=== PATIENT | female | born 2000 | race Caucasian/White ===

== ENCOUNTER 2025-06-03 06:38 | Emergency (ER) | payer OTHER, SELFPAY ==
[2025-06-03 06:41] VITALS: BP 130/86
--- NOTE | 2025-06-03 07:18 | ED.SKININJ ---
HPI-Injury
<GUDELIA García Last Filed: 06/03/25 10:22>
General
Chief Complaint: Skin Problem
Source: patient
Exam Limitations: none
Time Seen by Provider: 06/03/25 07:09
History of Present Illness-Injury
Initial Injury comments:
24-year-old otherwise healthy female presents complaining of increased pain swelling and redness to the left forearm. Her cat bit her 3 days ago. 2 days ago she started on Augmentin. She has been on Augmentin for 48 hours and has had 4 doses.
She notes nausea and chills as well. She notes the swelling in the area of discomfort is spreading up her forearm. Cats vaccines are up-to-date. No other at this time
Past History
<GUDELIA García Last Filed: 06/03/25 10:22>
Past History
ED Past Medical History: Psychiatric (Anxiety/depression)
ED Past Surgical History: Other (Oral surgery)
Social History
Tobacco: Non-smoker
Alcohol: None
Drug: None
Personal: Single
Living: with family
Employment: Student
Family History
Family History: Other (Noncontributory)
Phy Exam
<GUDELIA García Last Filed: 06/03/25 10:22>
Physical Exam
Physical Exam:
General: Well-appearing female no acute respiratory distress
HEENT: Normocephalic atraumatic
Heart: Regular rate and rhythm
Lungs: Clear no wheeze
Skin: Multiple puncture wounds dorsal aspect left forearm with surrounding erythema. There is swelling noted here as well. This is tender without fluctuance. There is no lymphangitic streaking. She has good range of motion to the elbow and the
wrist
Vascular: 2+ radial pulse left wrist
Sepsis
<GUDELIA García Filed: 06/03/25 10:22>
Sepsis Screening
Sepsis Assessment: Sepsis Ruled Out
Sepsis Screen
Sepsis Screen: Sepsis Ruled Out
Date: 06/03/25
Time: 10:22
Course
<Moises GUDELIA Farooq - Last Filed: 06/03/25 10:22>
Orders/Labs/Results
Orders:
Orders
06/03/25 07:17
Ketorolac [Toradol] 15 mg IV NOW STA
06/03/25 07:18
Ondansetron Injectable [Zofran] 4 mg IV NOW STA
06/03/25 07:35
Ampicillin/Sulbactam 3 G [Unasyn] 3 gm 0.9% Sodium Chloride 100 ml [Nss] 100 ml IV NOW
06/03/25 07:42
Complete Blood Count/With Diff Urgent
Comprehensive Metabolic Panel Urgent
Blood Culture Q30M
MICHI Source: Blood/Venous
Specimen Description:
Blood Culture Q30M
MICHI Source: Blood/Venous
Specimen Description:
06/03/25 08:00
Flush (0.9% Sodium Chloride) [Flush (Nss)] See Dose Instructions IV PER PROTOCOL
06/03/25 08:41
CR Forearm - Left 2 View Urgent
Comment:
Reason For Exam: cat bite
06/03/25 08:59
0.9% Sodium Chloride 1000 ml [Nss] 1,000 ml IV BOLUS
Abnormal Lab Results
06/03/25
07:42
RBC 4.18 L 10^6/uL
(4.20-5.40)
MCH 31.8 H pg
(27.0-31.0)
06/03/25 07:42
06/03/25 07:42
Vital Signs
Initial and Last Documented VS:
Initial Vital Signs
Temp Pulse Resp BP Pulse Ox
98.1 F 93 16 130/86 96
06/03/25 06:41 06/03/25 06:41 06/03/25 06:41 06/03/25 06:41 06/03/25 06:41
Last Documented Vital Signs
Temp Pulse Resp BP Pulse Ox
98.1 F 93 16 130/86 96
06/03/25 06:41 06/03/25 06:41 06/03/25 06:41 06/03/25 06:41 06/03/25 07:20
<Daniel Zhang, - Last Filed: 06/03/25 09:52>
Orders/Labs/Results
Orders:
Orders
06/03/25 07:17
Ketorolac [Toradol] 15 mg IV NOW STA
06/03/25 07:18
Ondansetron Injectable [Zofran] 4 mg IV NOW STA
06/03/25 07:35
Ampicillin/Sulbactam 3 G [Unasyn] 3 gm 0.9% Sodium Chloride 100 ml [Nss] 100 ml IV NOW
06/03/25 07:42
Complete Blood Count/With Diff Urgent
Comprehensive Metabolic Panel Urgent
Blood Culture Q30M
MICHI Source: Blood/Venous
Specimen Description:
Blood Culture Q30M
MICHI Source: Blood/Venous
Specimen Description:
06/03/25 08:00
Flush (0.9% Sodium Chloride) [Flush (Nss)] See Dose Instructions IV PER PROTOCOL
06/03/25 08:41
CR Forearm - Left 2 View Urgent
Comment:
Reason For Exam: cat bite
06/03/25 08:59
0.9% Sodium Chloride 1000 ml [Nss] 1,000 ml IV BOLUS
Abnormal Lab Results
06/03/25
07:42
RBC 4.18 L 10^6/uL
(4.20-5.40)
MCH 31.8 H pg
(27.0-31.0)
06/03/25 07:42
06/03/25 07:42
Vital Signs
Initial and Last Documented VS:
Initial Vital Signs
Temp Pulse Resp BP Pulse Ox
98.1 F 93 16 130/86 96
06/03/25 06:41 06/03/25 06:41 06/03/25 06:41 06/03/25 06:41 06/03/25 06:41
Last Documented Vital Signs
Temp Pulse Resp BP Pulse Ox
98.1 F 93 16 130/86 96
06/03/25 06:41 06/03/25 06:41 06/03/25 06:41 06/03/25 06:41 06/03/25 07:20
<Moises Farooq PA-C - Last Filed: 06/03/25 10:22>
MDM/Problems Addressed
Differential Diagnosis Includes:
Cat bite with surrounding erythema. Consider cellulitis. No clinical sign of abscess. Concern as she has been on antibiotics for 48 hours without improvement infections getting worse. Will check labs including blood cultures. Toradol Zofran and
use Unasyn ordered.
<Moises Farooq PA-C - Last Filed: 06/03/25 10:22>
*Pulse Oximetry
SaO2: 96
Oxygen Mode of Delivery: Room air
Patient hypoxic: no
*Critical Care Note
Total Time (30-74mins, 75-104mins- exclusive of procedures): Not Applicable
<Moises Farooq PA-C - Last Filed: 06/03/25 10:22>
Update Note
Update Note:
Labs reviewed normal white count afebrile here patient feeling much better after interventions performed here including Toradol Unasyn and fluids. X-ray negative for foreign body. Shared decision making occurred as far as treatment. Given
improvement of symptoms we will continue Augmentin at home. Will prescribe a couple days of Toradol for her for her pain. Return precautions were given. Did discuss potentially changing the regimen to a dual antibiotic therapy however double the
Augmentin. No lymphangitis at this time.
ED Attending Note
<Moises Farooq PA-C - Last Filed: 06/03/25 10:22>
-
Portions of this chart may have been created with voice recognition software.� Occasional wrong word or��sound alike� substitutions may have occurred due to the inherent limitations of voice recognition software.
<Daniel Zhang DO - Last Filed: 06/03/25 09:52>
ED Attending Note
Patient seen and examined by attending physician: Yes
I performed the substantive portion of visit, reviewed & personally made and approve the management plan that is documented in note by myself or GUILLERMO.: Yes
ED Attending Note:
Cat bite to left forearm and left upper arm. Exam: Normal distal cap refill does a puncture wound to the proximal medial left upper arm as well as the dorsal left forearm. There is minimal surrounding left forearm redness. No drainage. She has a
bruising to the right arm from a different injury. Assessment plan: Continue antibiotics and apply warm compresses. Given IV antibiotics. Patient counseled on reasons for return
Discharge Plan
Departure
Patient Disposition: Home (Routine Discharge)
Date of Disposition: 06/03/25
Time of Disposition: 10:20
Patient with high blood pressure during this ER visit?: No
Discharge Problem:
Cellulitis
Instructions: Cellulitis (Skin Infection), Adult (DC)
Prescriptions:
New
ketorolac 10 mg tablet
10 mg PO QID PRN (Reason: Pain) Qty: 15 0RF
Rx Instructions:
maximum total duration of 5 days from all oral, intranasal, or parenteral formulations
No Action
epinephrine [EpiPen] 0.3 MG/0.3/SYRINGE auto-injector
0.3 mg IM PRN PRN (Reason: severe alelrgy) Qty: 1 2RF
lamotrigine [Lamictal] 150 mg Tablet
150 mg PO DAILY
hydroxyzine HCl 25 mg Tablet
25 mg PO QID PRN (Reason: ANXIETY)
prednisolone sodium phosphate [prednisolone sodium phosphate] 15 mg/5 mL (3 mg/mL) solution
10 ml PO DAILY 3 Days Qty: 30 0RF
Rx Instructions:
Take Prelone starting tomorrow, once daily x 3 days
ondansetron [ondansetron] 4 mg tablet,disintegrating
4 mg PO Q8H PRN (Reason: Nausea and Vomiting) 10 Days Qty: 15 0RF
hydrocodone-acetaminophen [hydrocodone-acetaminophen] 7.5-325 mg/15 mL solution
15 ml PO Q4HPRN PRN (Reason: Pain) Qty: 475 0RF
ciprofloxacin HCl 500 mg Tablet
500 mg PO BID Qty: 14 0RF
phenazopyridine [Pyridium] 200 mg tablet
200 mg PO TID PRN (Reason: Pain) Qty: 14 0RF
ketorolac 10 mg tablet
10 mg PO QID PRN (Reason: pain) Qty: 20 0RF
amoxicillin-pot clavulanate 875-125 mg tablet
1 tab PO BID Qty: 14 0RF
Referrals:
Lise Hodges MD [Family Provider, Family Practice]
Activity Restrictions/Additional Instructions:
Continue with Augmentin. Use warm compresses several times a day. May use prescribed medicine as needed for pain. Return here for increasing swelling redness fever vomiting or other concerning findings
Interventions
Interventions:
*Risk Screen - Suicide Last Done: 06/03/25 06:41
ED-Skin Assessment Last Done: 06/03/25 07:58
Discharge Date and Time
Print Language: SPANISH
[2025-06-03] MEDS: TORADOL 15 MG IV (07:44)
[2025-06-03] MEDS: ZOFRAN 4 MG IV (07:45)
[2025-06-03] MEDS: UNASYN IV (07:52)
[2025-06-03 07:59] LABS: Hematocrit 38.0 % (37.0-47.0); Hemoglobin 13.3 g/dL (12.0-16.0); Mean Corp Hgb Conc. 35.0 g/dL (33.0-37.0); Mean Corpuscular Volume 90.9 fL (81.0-99.0); Nucleated Red Blood Cells % 0 %; Platelet Count 218 10^3/uL (130-400); Red Cell Dist. Width 11.9 % (11.5-14.5)
[2025-06-03 08:19] LABS: ALT (SGPT) 34 U/L (0-35); AST (SGOT) 25 U/L (14-36); Albumin 4.4 g/dl (3.5-5.0); Alkaline Phosphatase 55 U/L (38-126); Blood Urea Nitrogen 12 mg/dl (7-17); Calcium 9.2 mg/dl (8.4-10.2); Carbon Dioxide 24 mmol/L (22-30); Chloride 107 mmol/L (98-107); Glucose 94 mg/dl (70-99); Potassium 4.9 mmol/L (3.5-5.1); Sodium 139 mmol/L (135-145); Total Protein 7.3 g/dl (6.3-8.2); eGFR > 60.00
[2025-06-03] MEDS: NSS 1000 IV (09:28)
== END 2025-06-03 10:28 | disposition home or self-care (01) ==
LOC: EMR 06:38
PROVIDERS: Physician Assistant; EMERGENCY PHYSICIAN Emergency Medicine; FAMILY PHYSICIAN Family Medicine
DX: L03.114 Cellulitis of left upper limb (principal); S51.832A Puncture wound without foreign body of left forearm, initial encounter; S41.132A Puncture wound without foreign body of left upper arm, initial encounter; W55.01XA Bitten by cat, initial encounter; R11.0 Nausea; R68.83 Chills (without fever); S40.021A Contusion of right upper arm, initial encounter; X58.XXXA Exposure to other specified factors, initial encounter; F41.9 Anxiety disorder, unspecified; F32.A Depression, unspecified; Z91.013 Allergy to seafood; Z88.8 Allergy status to other drugs, medicaments and biological substances; Z91.018 Allergy to other foods
CPT/HCPCS: 99284; 96365; 96375 ×2; 96361; 73090; 80053; 85025; 87040

== ENCOUNTER 2025-08-25 00:31 | Emergency (ER) | payer OTHER, SELFPAY ==
[2025-08-25 00:42] VITALS: BP 170/106
[2025-08-25] MEDS: IMITREX 6 MG SC (00:57)
[2025-08-25] MEDS: REGLAN 10 MG IV (02:08)
[2025-08-25] MEDS: BENADRYL 12.5 MG IV (02:08)
[2025-08-25] MEDS: TORADOL 15 MG IV (02:09)
[2025-08-25] MEDS: NSS 500 IV (02:10)
[2025-08-25 02:19] LABS: Hematocrit 41.2 % (37.0-47.0); Hemoglobin 14.9 g/dL (12.0-16.0); Mean Corp Hgb Conc. 36.2 g/dL (33.0-37.0); Mean Corpuscular Volume 87.3 fL (81.0-99.0); Platelet Count 270 10^3/uL (130-400); Red Cell Dist. Width 11.5 % (11.5-14.5)
[2025-08-25 02:35] LABS: HCG, Serum Qualitative Screen Negative
[2025-08-25 02:37] LABS: Blood Urea Nitrogen 13 mg/dl (7-17); Calcium 10.5 mg/dl (8.4-10.2); Carbon Dioxide 25 mmol/L (22-30); Chloride 105 mmol/L (98-107); Glucose 98 mg/dl (70-99); Magnesium 2.1 mg/dl (1.6-2.3); Potassium 4.5 mmol/L (3.5-5.1); Sodium 141 mmol/L (135-145); eGFR > 60.00
[2025-08-25 03:08] LABS: TSH 2.26 uIU/ml (0.47-4.68)
[2025-08-25 03:32] VITALS: BP 95/55
[2025-08-25] MEDS: TYLENOL 1000 MG PO (04:03)
[2025-08-25 05:00] VITALS: BP 140/82
--- NOTE | 2025-08-25 05:21 | ED.GENMED ---
History of Present Illness
General
Chief Complaint: Numbness
Source: patient
Exam Limitations: none
Time Seen by Provider: 08/25/25 00:54
Nursing documentation reviewed up to this point in time: agreed with
History of Present Illness
History of Present Illness:
Patient with history of migraine headache, presents ED secondary to worsening headache along with right facial and right arm/leg numbness sensation. Denies blurred vision. Denies dizziness. Denies weakness. Denies difficulty speech. Denies
trauma. Denies recent illness. Denies recent change in medications or diet. Patient has had headache in the past, but never associated with numbness sensation.
Past History
Past History
ED Past Medical History: Psychiatric (Anxiety/depression)
ED Past Surgical History: Other (Oral surgery)
Social History
Tobacco: Non-smoker
Alcohol: None
Drug: None
Personal: Single
Living: with family
Employment: Student
Family History
Family History: Other (Noncontributory)
Review of Systems
Review of Systems
Allergies reviewed?: Yes
All Other Systems: ROS reviewed and negative except as documented in HPI and ROS
Constitutional: Reports no symptoms
Respiratory: Reports no symptoms
Cardiac: Reports no symptoms
ABD/GI: Reports no symptoms
Musculoskeletal: Reports no symptoms
Skin: Reports no symptoms
Neurological: Reports headache and numbness; Denies dizzy or weakness
Phy Exam
Physical Exam
Physical Exam:
Physical Exam
General: mild painful distress, not acutely ill. afebrile
Head: nc/at. eomi
Neck: supple. no meningeal signs. normal range of motion
Heart: s1/s2 regular rate and rhythm
Lungs: no acute respiratory distress. clear bilaterally
Abdomen: normal bowel sounds. not tender.
Neuro: alert and oriented x 3. no motor weakness. diminished sensation noted over right face/RUE/RLE. normal speech
Skin: no rash
Psychiatric: well kept. interactive and cooperative
Extremities: no edema. no calf tenderness.
Course
Orders/Labs/Results
Orders:
Orders
08/25/25 00:54
Sumatriptan Succinate [Imitrex] 6 mg SC NOW STA
08/25/25 01:38
0.9% Sodium Chloride 500 ml [Nss] 500 ml IV BOLUS
Diphenhydramine [Benadryl] 12.5 mg IV NOW STA
Ketorolac [Toradol] 15 mg IV NOW STA
Metoclopramide [Reglan] 10 mg IV NOW STA
08/25/25 01:57
Test Result ONCE
08/25/25 02:06
Basic Metabolic Panel Urgent
Complete Blood Count/No Diff Urgent
HCG, Serum Qualitative Screen Urgent
Lyme Progressive Urgent
Comment: ADD ON
Magnesium Urgent
TSH Urgent
08/25/25 03:58
CT Head & Neck Angio W/wo IV Urgent
Comment:
Reason For Exam: headache w right UE/LE numbness
08/25/25 04:01
Acetaminophen [Tylenol] 1,000 mg .ROUTE .STK-MED ONE
Acetaminophen [Tylenol] 1,000 mg PO NOW STA
08/25/25 04:02
Add On- LAB Urgent
Tests Added?: Lyme progressive
Abnormal Lab Results
08/25/25
02:06
MCH 31.6 H pg
(27.0-31.0)
Calcium 10.5 H mg/dl
(8.4-10.2)
08/25/25 02:06
08/25/25 02:06
Vital Signs
Initial and Last Documented VS:
Initial Vital Signs
Temp Pulse Resp BP Pulse Ox
98.6 F 117 24 170/106 99
08/25/25 00:42 08/25/25 00:42 08/25/25 00:42 08/25/25 00:42 08/25/25 00:42
Last Documented Vital Signs
Temp Pulse Resp BP Pulse Ox
98.6 F 92 14 140/82 98
08/25/25 00:42 08/25/25 06:34 08/25/25 06:34 08/25/25 06:34 08/25/25 06:34
MDM/Problems Addressed
MDM/Problems Addressed:
Patient given treatment in the ED, with improvement headache, along with improved sensation of right upper and lower extremity. However upon reexamination, patient still reporting diminished sensation. As such, decision made to check blood work
and order CT head/neck angiogram.
CT report reviewed and discussed with patient. Patient reports continual improvement in symptoms during observation. As such, after discussion, decision made to discharge patient home with symptomatic treatment, along with outpatient consultation
with neurology. Return precautions provided, i.e. fever/worsening headache/vomiting/numbness or weakness.
*Pulse Oximetry
SaO2: 99
Oxygen Mode of Delivery: Room air
Patient hypoxic: no
*Critical Care Note
Total Time (30-74mins, 75-104mins- exclusive of procedures): Not Applicable
ED Attending Note
-
Portions of this chart may have been created with voice recognition software.� Occasional wrong word or��sound alike� substitutions may have occurred due to the inherent limitations of voice recognition software.
Discharge Plan
Departure
Patient Disposition: Home (Routine Discharge)
Date of Disposition: 08/25/25
Time of Disposition: 06:02
Patient with high blood pressure during this ER visit?: Yes
Condition: Good
Discharge Problem:
Headache
Instructions: Headache in adults - ED (DC)
Prescriptions:
New
ondansetron 4 mg Tablet,Disintegrating
4 mg PO TIDPRN PRN (Reason: nausea/vomiting) Qty: 12 0RF
rizatriptan [Maxalt] 10 mg tablet
10 mg PO ONCE PRN (Reason: migraine headache) Qty: 14 0RF
No Action
epinephrine [EpiPen] 0.3 MG/0.3/SYRINGE auto-injector
0.3 mg IM PRN PRN (Reason: severe alelrgy) Qty: 1 2RF
lamotrigine [Lamictal] 150 mg Tablet
150 mg PO DAILY
hydroxyzine HCl 25 mg Tablet
25 mg PO QID PRN (Reason: ANXIETY)
prednisolone sodium phosphate [prednisolone sodium phosphate] 15 mg/5 mL (3 mg/mL) solution
10 ml PO DAILY 3 Days Qty: 30 0RF
Rx Instructions:
Take Prelone starting tomorrow, once daily x 3 days
ondansetron [ondansetron] 4 mg tablet,disintegrating
4 mg PO Q8H PRN (Reason: Nausea and Vomiting) 10 Days Qty: 15 0RF
hydrocodone-acetaminophen [hydrocodone-acetaminophen] 7.5-325 mg/15 mL solution
15 ml PO Q4HPRN PRN (Reason: Pain) Qty: 475 0RF
ciprofloxacin HCl 500 mg Tablet
500 mg PO BID Qty: 14 0RF
phenazopyridine [Pyridium] 200 mg tablet
200 mg PO TID PRN (Reason: Pain) Qty: 14 0RF
ketorolac 10 mg tablet
10 mg PO QID PRN (Reason: pain) Qty: 20 0RF
amoxicillin-pot clavulanate 875-125 mg tablet
1 tab PO BID Qty: 14 0RF
ketorolac 10 mg tablet
10 mg PO QID PRN (Reason: Pain) Qty: 15 0RF
Rx Instructions:
maximum total duration of 5 days from all oral, intranasal, or parenteral formulations
Referrals:
Vamshi Burdick MD [Active, Neurology]
Stand Alone Forms: Return to Work
Activity Restrictions/Additional Instructions:
As discussed, please follow-up with your primary care physician and/or referred neurologist for further evaluation and treatment. Please consider return to ED with worsening symptoms. Your prescription has been sent electronically to [facility] pharmacy
in [place]
Interventions
Interventions:
*Risk Screen - Suicide Last Done: 08/25/25 00:42
*General Assessment Last Done: 08/25/25 01:06
*Neglect/Abuse Screening Last Done: 08/25/25 00:42
*ED- Fall Risk Assessment Last Done: 08/25/25 01:05
*ED COVID-19 Vaccine History Last Done: 08/25/25 01:03
*ED Influenza Vaccine History Last Done: 08/25/25 01:03
*Nursing Disposition Last Done: 08/25/25 06:34
ED- Neurological Assessment Last Done: 08/25/25 01:04
Discharge Date and Time
Discharge Date/Time: 08/25/25 06:35
Print Language: UKRAINIAN
[2025-08-25 06:34] VITALS: BP 140/82
[2025-08-28 16:09] LABS: Lyme Antibody Screen, EIA Negative (Negative)
== END 2025-08-25 06:35 | disposition home or self-care (01) ==
LOC: EMR 00:31
PROVIDERS: EMERGENCY PHYSICIAN Emergency Medicine
DX: R51.9 Headache, unspecified (principal); R03.0 Elevated blood-pressure reading, without diagnosis of hypertension; F41.9 Anxiety disorder, unspecified; F32.A Depression, unspecified
CPT/HCPCS: 99284; 96374; 96375 ×2; 96372; 70496; 70498; 80048; 83735; 84443; 84703; 85027; 86618; Q9967

== ENCOUNTER 2025-09-18 19:00 | Emergency (ER) | payer OTHER, SELFPAY ==
[2025-09-18 19:06] VITALS: BP 127/92
[2025-09-18 19:22] LABS: Hematocrit 39.3 % (37.0-47.0); Hemoglobin 14.1 g/dL (12.0-16.0); Mean Corp Hgb Conc. 35.9 g/dL (33.0-37.0); Mean Corpuscular Volume 87.9 fL (81.0-99.0); Nucleated Red Blood Cells % 0 %; Platelet Count 275 10^3/uL (130-400); Red Cell Dist. Width 11.3 % (11.5-14.5)
[2025-09-18 19:36] LABS: HCG, Serum Qualitative Screen Negative
[2025-09-18 19:42] LABS: ALT (SGPT) 19 U/L (0-35); AST (SGOT) 22 U/L (14-36); Albumin 4.9 g/dl (3.5-5.0); Alkaline Phosphatase 47 U/L (38-126); Blood Urea Nitrogen 14 mg/dl (7-17); Calcium 10.0 mg/dl (8.4-10.2); Carbon Dioxide 24 mmol/L (22-30); Chloride 104 mmol/L (98-107); Glucose 130 mg/dl (70-99); Potassium 4.6 mmol/L (3.5-5.1); Sodium 138 mmol/L (135-145); Total Protein 8.1 g/dl (6.3-8.2); eGFR > 60.00
[2025-09-18 21:13] VITALS: BMI 23.9
--- NOTE | 2025-09-18 21:34 | ED.GENMED ---
History of Present Illness
General
Chief Complaint: Numbness
Source: patient, records, family and previous radiology exam
Exam Limitations: none
Time Seen by Provider: 09/18/25 20:55
Nursing documentation reviewed up to this point in time: agreed with
History of Present Illness
History of Present Illness:
24-year-old female history of ADHD mental illness, migraines, presents with intermittent left-sided numbness with nosebleeds, seen here recently with right facial droop and weakness had a full workup discharged to follow-up with neurology apparently
had a positive CALLY and some other rheumatologic tests referred to see rheumatology in a week or so, she states she has a red rash around her face, apparently table driving had a hard time feeling her feet mother is concerned that her symptoms are
worsening, she will get into see rheumatology quick enough, patient and mother also are concerned about starting steroids empirically without seeing a wind energy project manager because it could alter final testing
She has had negative Lyme disease testing, an MRI of her head a few years ago, CT angiogram recently tells me she gets daily headaches
Past History
Past History
ED Past Medical History: Psychiatric (Anxiety/depression)
ED Past Surgical History: Other (Oral surgery)
Social History
Tobacco: Non-smoker
Alcohol: None
Drug: None
Personal: Single
Living: with family
Employment: Student
Family History
Family History: Other (Noncontributory)
Phy Exam
Physical Exam
Physical Exam:
Physical Exam
General: no apparent distress, not acutely ill
Neck: No jaundice
Heart: s1/s2 regular rate and rhythm, no murmur. equal radial pulses.
Lungs: no acute respiratory distress. clear bilaterally
Neuro: alert and oriented. no focal neurological deficits
Skin: Question of slight red rash on the face and
Psychiatric: well kept. interactive and cooperative
Extremities: no edema.
Course
Orders/Labs/Results
Orders:
Orders
10/27/25 19:12
Test Result ONCE
09/18/25 19:15
C-Reactive Protein Urgent
Comment: ADD ON
CMP [Comprehensive Metabolic Panel] Urgent
Complete Blood Count/With Diff Urgent
Erythrocyte Sed Rate Urgent
Comment: ADD ON
HCG, Serum Qualitative Screen Urgent
09/18/25 21:17
Add On- LAB Urgent
Tests Added?: esr/crp
09/18/25 21:29
Rizatriptan Orally Disintegrat [Maxalt Nuts And Bolts Assembler (Orally Disintegrating)] 10 mg PO ONCE ONE
09/18/25 21:30
0.9% Sodium Chloride 1000 ml [Nss] 1,000 ml IV BOLUS
Abnormal Lab Results
09/18/25
19:15
MCH 31.5 H pg
(27.0-31.0)
RDW 11.3 L %
(11.5-14.5)
Glucose 130 H mg/dl
(70-99)
09/18/25 19:15
09/18/25 19:15
Vital Signs
Initial and Last Documented VS:
Initial Vital Signs
Temp Pulse Resp BP Pulse Ox
98.3 F 115 18 127/92 96
09/18/25 19:06 09/18/25 19:06 09/18/25 19:06 09/18/25 19:06 09/18/25 19:06
Last Documented Vital Signs
Temp Pulse Resp BP Pulse Ox
98.3 F 115 18 127/92 96
09/18/25 19:06 09/18/25 19:06 09/18/25 19:06 09/18/25 19:06 09/18/25 21:36
MDM/Problems Addressed
Differential Diagnosis Includes:
Complicated migraine, anxiety, psychosomatic, rheumatologic,
MDM/Problems Addressed:
Headache nosebleed dizziness weakness
Chronic conditions affecting care: Neurological disorder and Psychiatric illness
Acute Exacerbation and/or Progression of Chronic Illness: Neurological disorder and Psychiatric illness
*Pulse Oximetry
SaO2: 96
Oxygen Mode of Delivery: Room air
Patient hypoxic: no
*Critical Care Note
Total Time (30-74mins, 75-104mins- exclusive of procedures): Not Applicable
Update Note
Update Note:
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
steroids which is not unreasonable
10:30 PM update patient smiling ambulated without difficulty states she is feeling better after fluids and Maxalt
Encouraged her to keep her appointment with rheumatology
ED Attending Note
-
Portions of this chart may have been created with voice recognition software.� Occasional wrong word or��sound alike� substitutions may have occurred due to the inherent limitations of voice recognition software.
Discharge Plan
Departure
Patient Disposition: Home (Routine Discharge)
Date of Disposition: 09/18/25
Time of Disposition: 22:35
Patient with high blood pressure during this ER visit?: No
Condition: Good
Discharge Problem:
Migraine headache
Prescriptions:
New
rizatriptan [Maxalt] 10 mg tablet
10 mg PO ONCE PRN (Reason: migraine headache) Qty: 20 0RF
No Action
epinephrine [EpiPen] 0.3 MG/0.3/SYRINGE auto-injector
0.3 mg IM PRN PRN (Reason: severe alelrgy) Qty: 1 2RF
lamotrigine [Lamictal] 150 mg Tablet
150 mg PO DAILY
hydroxyzine HCl 25 mg Tablet
25 mg PO QID PRN (Reason: ANXIETY)
prednisolone sodium phosphate [prednisolone sodium phosphate] 15 mg/5 mL (3 mg/mL) solution
10 ml PO DAILY 3 Days Qty: 30 0RF
Rx Instructions:
Take Prelone starting tomorrow, once daily x 3 days
ondansetron [ondansetron] 4 mg tablet,disintegrating
4 mg PO Q8H PRN (Reason: Nausea and Vomiting) 10 Days Qty: 15 0RF
hydrocodone-acetaminophen [hydrocodone-acetaminophen] 7.5-325 mg/15 mL solution
15 ml PO Q4HPRN PRN (Reason: Pain) Qty: 475 0RF
ciprofloxacin HCl 500 mg Tablet
500 mg PO BID Qty: 14 0RF
phenazopyridine [Pyridium] 200 mg tablet
200 mg PO TID PRN (Reason: Pain) Qty: 14 0RF
ketorolac 10 mg tablet
10 mg PO QID PRN (Reason: pain) Qty: 20 0RF
amoxicillin-pot clavulanate 875-125 mg tablet
1 tab PO BID Qty: 14 0RF
ketorolac 10 mg tablet
10 mg PO QID PRN (Reason: Pain) Qty: 15 0RF
Rx Instructions:
maximum total duration of 5 days from all oral, intranasal, or parenteral formulations
ondansetron 4 mg Tablet,Disintegrating
4 mg PO TIDPRN PRN (Reason: nausea/vomiting) Qty: 12 0RF
rizatriptan [Maxalt] 10 mg tablet
10 mg PO ONCE PRN (Reason: migraine headache) Qty: 14 0RF
Referrals:
Lise Hodges MD [Family Provider, Family Practice] - Next open appointment
Stand Alone Forms: Return to Work
Activity Restrictions/Additional Instructions:
Call your wind energy project manager tomorrow to see if your appointment can get pushed up
Interventions
Interventions:
*Risk Screen - Suicide Last Done: 09/18/25 19:06
*General Assessment Last Done: 09/18/25 21:13
*Neglect/Abuse Screening Last Done: 09/18/25 19:06
*ED- Fall Risk Assessment Last Done: 09/18/25 19:06
*ED COVID-19 Vaccine History Last Done: 09/18/25 19:06
*ED Influenza Vaccine History Last Done: 09/18/25 21:13
ED- Neurological Assessment Last Done: 09/18/25 21:13
Discharge Date and Time
Print Language: GERMAN
[2025-09-18] MEDS: MAXALT MLT (ORALLY DISINTEGRATING) 10 MG PO (21:39)
[2025-09-18] MEDS: NSS 1000 IV (21:48)
[2025-09-18 21:54] LABS: C-Reactive Protein < 5.00 mg/L (0.0-10.00)
== END 2025-09-18 23:04 | disposition home or self-care (01) ==
LOC: EMR 19:00
PROVIDERS: Student in an Organized Health Care Education/Training Program; EMERGENCY PHYSICIAN Emergency Medicine; FAMILY PHYSICIAN Family Medicine
DX: G43.909 Migraine, unspecified, not intractable, without status migrainosus (principal); F90.9 Attention-deficit hyperactivity disorder, unspecified type; I69.992 Facial weakness following unspecified cerebrovascular disease
CPT/HCPCS: 99283; 96360; 80053; 84703; 85025; 85652; 86140

== ENCOUNTER 2025-10-04 23:06 | Emergency (ER) | payer OTHER, SELFPAY ==
[2025-10-04 23:17] VITALS: BP 134/82
[2025-10-04 23:44] LABS: Hematocrit 39.2 % (37.0-47.0); Hemoglobin 14.2 g/dL (12.0-16.0); Mean Corp Hgb Conc. 36.2 g/dL (33.0-37.0); Mean Corpuscular Volume 87.3 fL (81.0-99.0); Nucleated Red Blood Cells % 0 %; Platelet Count 250 10^3/uL (130-400); Red Cell Dist. Width 11.4 % (11.5-14.5)
[2025-10-05 00:05] LABS: ALT (SGPT) 63 U/L (0-35); AST (SGOT) 95 U/L (14-36); Albumin 5.0 g/dl (3.5-5.0); Alkaline Phosphatase 52 U/L (38-126); Blood Urea Nitrogen 15 mg/dl (7-17); Calcium 10.1 mg/dl (8.4-10.2); Carbon Dioxide 28 mmol/L (22-30); Chloride 100 mmol/L (98-107); Glucose 106 mg/dl (70-99); Potassium 4.3 mmol/L (3.5-5.1); Sodium 134 mmol/L (135-145); Total Protein 8.4 g/dl (6.3-8.2); Troponin I 0.015 ng/ml; eGFR > 60.00
[2025-10-05 00:24] VITALS: BMI 23.3
[2025-10-05 00:25] VITALS: BP 123/75
--- NOTE | 2025-10-05 00:28 | ED.GENMED ---
History of Present Illness
General
Chief Complaint: Cardiac Symptoms
Source: patient
Exam Limitations: none
Time Seen by Provider: 10/05/25 00:13
History of Present Illness
History of Present Illness:
See MDM
Past History
Past History
ED Past Medical History: Psychiatric (Anxiety/depression) and Other (Lupus)
ED Past Surgical History: Other (Oral surgery)
Social History
Tobacco: Non-smoker
Alcohol: None
Drug: None
Personal: Single
Living: with family
Employment: Student
Family History
Family History: Other (Noncontributory)
Phy Exam
Physical Exam
Physical Exam:
See MDM
Course
Orders/Labs/Results
Orders:
Orders
10/04/25 23:08
ECG [Electrocardiogram (*1)] Urgent
Reason for Study: Chest Pain
EKG- Treatment ONCE
10/04/25 23:34
Complete Blood Count/With Diff Urgent
Comprehensive Metabolic Panel Urgent
HCG, Serum Qualitative Screen Urgent
Comment: ADD ON
Troponin I Urgent
10/04/25 23:37
TSH Reflex To Free T4 Urgent
Comment: ADD ON
10/05/25 00:27
CT Chest PE Study Urgent
Comment:
Reason For Exam: SOB, chest pain
0.9% Sodium Chloride 1000 ml [Nss] 1,000 ml IV BOLUS
10/05/25 00:28
Add On- LAB Urgent
Tests Added?: TSH reflex Free T4
10/05/25 00:39
Add On- LAB Urgent
Tests Added?: Serum HCG qualitative
10/05/25 00:43
Propranolol [Inderal] 10 mg PO NOW STA
Abnormal Lab Results
10/04/25
23:34
MCH 31.6 H pg
(27.0-31.0)
RDW 11.4 L %
(11.5-14.5)
Sodium 134 L mmol/L
(135-145)
Glucose 106 H mg/dl
(70-99)
AST 95 H U/L
(14-36)
ALT 63 H U/L
(0-35)
Total Protein 8.4 H g/dl
(6.3-8.2)
10/04/25 23:34
10/04/25 23:34
Vital Signs
Initial and Last Documented VS:
Initial Vital Signs
Temp Pulse Resp BP Pulse Ox
98.3 F 109 16 134/82 98
10/04/25 23:17 10/04/25 23:17 10/04/25 23:17 10/04/25 23:17 10/04/25 23:17
Last Documented Vital Signs
Temp Pulse Resp BP Pulse Ox
98.3 F 90 15 117/83 98
10/04/25 23:17 10/05/25 01:25 10/05/25 00:25 10/05/25 01:25 10/05/25 00:30
MDM/Problems Addressed
Differential Diagnosis Includes:
Note:
CHIEF COMPLAINT(S)
Chest discomfort and tachycardia
HISTORY OF PRESENT ILLNESS
The patient is a 25-year-old female with a recent diagnosis of systemic lupus erythematosus and rheumatoid arthritis, presenting with chest discomfort and a rapid heart rate for just over 24 hours. The patient reports feeling shortness of breath and
attempts to walk result in fatigue. She has experienced a 'butterfly' rash, severe headaches, and numbness in her extremities previously, for which blood work showed a positive CALLY with a speckled pattern suggestive of lupus, per pt. The patient is
scheduled to follow up with her neurologist, Dr. Burdick, soon. She recently started hydroxychloroquine.
The patient expresses concern over the possibility of a clot given her lupus diagnosis. She presents with systemic symptoms including fatigue and dizziness. There is no history provided of clotting factor abnormalities during blood work, and the
patient requests reassurance regarding the absence of any clots, thyroid dysfunction, or other imminent medical issues. Current management includes keeping hydration of concern due to a rapid heart rate.
The patient mentions earlier symptoms associated with migraine as diagnosed by Dr. Burdick. The patient has concerns for persistent symptoms and is anxious about potential diagnoses requiring intervention.
CHRONIC MEDICAL CONDITIONS SIGNIFICANTLY AFFECTING CARE
Chronic conditions affecting care include systemic lupus erythematosus and rheumatoid arthritis.
PHYSICAL EXAM
General: Alert, no acute distress.
Skin: Warm, dry.
Head: Normocephalic, atraumatic
Neck: Appears supple, trachea midline.
Eyes, Ears, Nose, Mouth, and Throat: dry mucous membranes
Cardiovascular: No signs of cyanosis. Tachycardic but regular
Respiratory: Respirations are non-labored.
Abdomen: Non-distended
Musculoskeletal: No deformities
Neurological: No focal neurological deficit observed.
Psychiatric: Cooperative, appropriate mood and affect.
PLAN
- Intravenous fluids were planned to address possible dehydration and assess impact on heart rate.
- Computed Tomography (CT) scan to rule out pulmonary embolism and ensure no underlying complications due to patient anxiety about potential clots.
- Thyroid function tests to rule out hyperthyroidism as a cause of symptoms.
- Propranolol administration was considered to address symptoms of tachycardia, scheduled to start treatment while fluids are administered.
DIFFERENTIAL DIAGNOSIS
The Differential Diagnosis includes, in no particular order and is not limited to:
- Sinus tachycardia
- Anxiety-induced tachycardia
- Hyperthyroidism
- Pulmonary embolism
- Dehydration-induced tachycardia
- Cardiac arrhythmia
- Renal dysfunction
- Drug-induced tachycardia
- Cardiomyopathy
- Systemic effects of systemic lupus erythematosus
SUMMARY OF ENCOUNTER
The patient was evaluated for chest discomfort and tachycardia, acknowledged the risks associated with lupus for developing clots. Management included optimizing hydration status via IV fluids, ruling out potential pulmonary embolism using CT
imaging, and measuring thyroid function for signs of hyperthyroidism. The decision to manage symptoms with propranolol was also addressed.
DISPOSITION
The patient may be discharged following imaging and lab test results if no acute issues are found.
MEDICATION RECONCILIATION
- One dose of propranolol was administered during the visit, with instructions considering further doses if symptoms persist at home.
MEDICAL DECISION MAKING
- Number and Complexity of Problems Addressed:
Chronic conditions affecting care: systemic lupus erythematosus, rheumatoid arthritis
- Data:
Category 1:
- Lab tests for thyroid function ordered.
- CT scan ordered and planned to rule out pulmonary embolism issues.
- Risk:
Prescription medication (propranolol) was prescribed. Consideration of admission/observation was discussed to ensure no immediate harm from rapid heart rate or clotting complications.
My independent EKG interpretation is:
- Rhythm: Sinus tachycardia
- Heart rate: 108 beats per minute
- [place]: Normal
- Intervals: Within normal limits
- Abnormalities: No ST elevation
SUMMARY OF ENCOUNTER
The patient presented with palpitations and appeared somewhat dehydrated. Management in the emergency department included administration of IV fluids and propranolol, which improved the patients symptoms. A CT pulmonary embolism study was performed
due to the patients history of lupus and symptoms including tachycardia, shortness of breath, and chest pain. The CT scan was negative for pulmonary embolism. Upon reassessment, the patient felt better.
DISPOSITION
Discharge.
ASSESSMENT
The patient presented with palpitations and mild dehydration, with symptoms improving after treatment. Lupus and the possibility of cardiac issues were considered, but acute concerns such as pulmonary embolism have been ruled out.
EMERGENCY TREATMENTS ADMINISTERED
IV fluids and propranolol were administered during the visit.
PLAN
The patient is to follow up with primary care to discuss the necessity of a cardiology referral, especially if symptoms persist or recur.
INDEPENDENT REVIEW OF LABS AND INTERPRETATION OF TESTS
- My independent interpretation of the CT scan shows no evidence of pulmonary embolism.
PATIENT EDUCATION AND COUNSELING
The patient was advised to follow up with a primary care provider to discuss ongoing management of palpitations and to consider potential cardiology evaluation.
FOLLOW-UP INSTRUCTIONS
The patient is recommended to speak with her primary care provider about the need for potential cardiology follow-up.
MEDICATION RECONCILIATION
A prescription for propranolol was initiated. The patient requested a refill for ondansetron (Zofran).
MEDICAL DECISION MAKING
- Number and Complexity of Problems Addressed: Chronic conditions affecting care include systemic lupus erythematosus and rheumatoid arthritis. Differential Diagnosis included sinus tachycardia, anxiety-induced tachycardia, hyperthyroidism,
pulmonary embolism, dehydration-induced tachycardia, cardiac arrhythmia, renal dysfunction, drug-induced tachycardia, cardiomyopathy, and systemic effects of systemic lupus erythematosus.
- Data:
Category 1:
- CT scan ordered and independently interpreted to rule out pulmonary embolism.
- My independent interpretation of the EKG indicates sinus tachycardia at a rate of 108 beats per minute with no ST elevation.
- Risk: Prescription medication management was initiated. Consideration of Admission/Observation: Escalation of care including admission/observation was considered given the complexity and risk of the patients presenting complaint, exam findings,
and their underlying comorbidities. However, ultimately, I feel the patient is safe for outpatient management with close follow-up. Reasoning: Work-up reassuring, does not reveal any acute life/organ-threatening processes, patients symptoms well
controlled upon reevaluation, reexamination is reassuring, vitals are stable, patient agreeable with discharge, reliable for follow-up.
DIAGNOSIS
Palpitations (ICD-10 R00.2), Dehydration, unspecified (ICD-10 E86.9), Lupus with organ or system involvement, other specified (ICD-10 M32.19).
*Pulse Oximetry
SaO2: 98
Oxygen Mode of Delivery: Room air
Patient hypoxic: no
*Critical Care Note
Total Time (30-74mins, 75-104mins- exclusive of procedures): Not Applicable
ED Attending Note
-
Portions of this chart may have been created with voice recognition software.� Occasional wrong word or��sound alike� substitutions may have occurred due to the inherent limitations of voice recognition software.
Discharge Plan
Departure
Patient Disposition: Home (Routine Discharge)
Date of Disposition: 10/05/25
Time of Disposition: 02:47
Patient with high blood pressure during this ER visit?: No
Discharge Problem:
Heart palpitations
Prescriptions:
New
ondansetron 4 mg Tablet,Disintegrating
4 mg PO BIDPRN PRN (Reason: nausea/vomiting) Qty: 20 0RF
propranolol 10 mg tablet
10 mg PO BID Qty: 60 0RF
No Action
epinephrine [EpiPen] 0.3 MG/0.3/SYRINGE auto-injector
0.3 mg IM PRN PRN (Reason: severe alelrgy) Qty: 1 2RF
lamotrigine [Lamictal] 150 mg Tablet
150 mg PO DAILY
hydroxyzine HCl 25 mg Tablet
25 mg PO QID PRN (Reason: ANXIETY)
prednisolone sodium phosphate [prednisolone sodium phosphate] 15 mg/5 mL (3 mg/mL) solution
10 ml PO DAILY 3 Days Qty: 30 0RF
Rx Instructions:
Take Prelone starting tomorrow, once daily x 3 days
ondansetron [ondansetron] 4 mg tablet,disintegrating
4 mg PO Q8H PRN (Reason: Nausea and Vomiting) 10 Days Qty: 15 0RF
hydrocodone-acetaminophen [hydrocodone-acetaminophen] 7.5-325 mg/15 mL solution
15 ml PO Q4HPRN PRN (Reason: Pain) Qty: 475 0RF
ciprofloxacin HCl 500 mg Tablet
500 mg PO BID Qty: 14 0RF
phenazopyridine [Pyridium] 200 mg tablet
200 mg PO TID PRN (Reason: Pain) Qty: 14 0RF
ketorolac 10 mg tablet
10 mg PO QID PRN (Reason: pain) Qty: 20 0RF
amoxicillin-pot clavulanate 875-125 mg tablet
1 tab PO BID Qty: 14 0RF
ketorolac 10 mg tablet
10 mg PO QID PRN (Reason: Pain) Qty: 15 0RF
Rx Instructions:
maximum total duration of 5 days from all oral, intranasal, or parenteral formulations
ondansetron 4 mg Tablet,Disintegrating
4 mg PO TIDPRN PRN (Reason: nausea/vomiting) Qty: 12 0RF
rizatriptan [Maxalt] 10 mg tablet
10 mg PO ONCE PRN (Reason: migraine headache) Qty: 14 0RF
rizatriptan [Maxalt] 10 mg tablet
10 mg PO ONCE PRN (Reason: migraine headache) Qty: 20 0RF
Referrals:
Lise Hodges MD [Family Provider, Family Practice]
Activity Restrictions/Additional Instructions:
Please return for any worsening symptoms.
You may return at any time if you have further concerns.
Please follow up with your doctor at the first available appointment, preferably this week.
Thank you for choosing [facility].
Interventions
Interventions:
*Risk Screen - Suicide Last Done: 10/04/25 23:20
*General Assessment Last Done: 10/04/25 23:20
*Neglect/Abuse Screening Last Done: 10/04/25 23:20
*ED- Fall Risk Assessment Last Done: 10/04/25 23:20
*ED COVID-19 Vaccine History Last Done: 10/04/25 23:20
*ED Influenza Vaccine History Last Done: 10/04/25 23:20
ED- Pulmonary Assessment Last Done: 10/05/25 00:26
ED- Cardiac Assessment Last Done: 10/05/25 00:26
Discharge Date and Time
Print Language: PASHTO
[2025-10-05] MEDS: NSS 1000 IV (00:38)
[2025-10-05 01:00] VITALS: BP 143/107
[2025-10-05 01:09] VITALS: BP 117/83
[2025-10-05 01:18] LABS: HCG, Serum Qualitative Screen Negative
[2025-10-05] MEDS: INDERAL 10 MG PO (01:25)
[2025-10-05 02:51] VITALS: BP 106/63
== END 2025-10-05 03:00 | disposition home or self-care (01) ==
LOC: EMR 23:06
PROVIDERS: EMERGENCY PHYSICIAN Student in an Organized Health Care Education/Training Program; FAMILY PHYSICIAN Family Medicine
DX: R00.2 Palpitations (principal); E86.0 Dehydration; M32.9 Systemic lupus erythematosus, unspecified; M06.9 Rheumatoid arthritis, unspecified; G43.909 Migraine, unspecified, not intractable, without status migrainosus; F41.9 Anxiety disorder, unspecified; F32.A Depression, unspecified
CPT/HCPCS: 99284; 96360; 71275; 80053; 84443; 84484; 84703; 85025; 93005; Q9967

== ENCOUNTER → 2025-11-02 13:59 | Outpatient (REF) | payer OTHER, SELFPAY | LOC: HWRCS 13:59 | PROVIDERS: ATTENDING PHYSICIAN Internal Medicine Cardiovascular Disease; FAMILY PHYSICIAN Family Medicine | DX: R00.0 Tachycardia, unspecified (principal) | CPT/HCPCS: 93306 ==